=== PATIENT | female | born 1950 | race Caucasian/White ===

== ENCOUNTER → 2020-09-15 | Outpatient (CLI) | payer OTHER ==
[2020-09-15 07:53] LABS: Basophils # (auto) 0.1 10 ^3/uL (0-0.2); Basophils % (auto) 0.7 % (0.0-2.0); Eosinophils # (auto) 0.3 10 ^3/uL (0-0.8); Eosinophils % (auto) 3.9 % (0.0-7.0); Hematocrit 37.9 % (36.0-46.0); Lymphocytes # (auto) 1.7 10 ^3/uL (0.4-5.4); Lymphocytes % (auto) 22.6 % (10.0-50.0); Mean Corpuscular Hemoglobin 29.5 pg (28.0-32.0); Mean Corpuscular Hgb Conc. 34.3 g/dL (32.0-36.0); Mean Corpuscular Volume 85.9 fL (80.0-100.0); Monocytes # (auto) 0.5 10 ^3/uL (0-1.3); Monocytes % (auto) 6.6 % (0.0-12.0); Neutrophils % (auto) 66.2 % (37.0-80.0); Nucleated Red Blood Cells % 0.1 %; Platelet Count (auto) 279 10^3/uL (140-450); Red Blood Cells 4.41 10^6/uL (4.0-5.20); Red Cell Distribution Width 13.8 % (11.8-14.3); Urine Bacteria NONE SEEN /hpf (None Seen); Urine Blood Negative /uL (Negative); Urine Specific Gravity 1.015 (1.001-1.035); Urine WBC <1 /hpf (0 - 5); White Blood Cell 7.6 10^3/uL (4.4-10.8)
[2020-09-15 08:25] LABS: Potassium 3.6 mmol/L (3.5-5.1)
[2020-09-15 08:36] LABS: Albumin 3.8 g/dL (3.4-5.0); BUN/Creatinine Ratio 24.4; Bilirubin, Total 0.3 mg/dL (0.2-1.0); Total Protein 7.4 g/dL (6.4-8.2)
== END | disposition home or self-care (01) ==
LOC: LAB 07:12
PROVIDERS: ATTEND Student in an Organized Health Care Education/Training Program
DX: E11.319 Type 2 diabetes mellitus with unspecified diabetic retinopathy without macular edema (principal); I10 Essential (primary) hypertension
CPT/HCPCS: 36415; 80053; 80061; 81001; 82043; 83036; 84443; 85025

== ENCOUNTER → 2020-11-30 | Outpatient (CLI) | payer OTHER ==
[2020-11-30 12:23] LABS: Basophils # (auto) 0.1 10 ^3/uL (0-0.2); Basophils % (auto) 0.7 % (0.0-2.0); Eosinophils # (auto) 0.3 10 ^3/uL (0-0.8); Eosinophils % (auto) 3.8 % (0.0-7.0); Hematocrit 35.7 % (36.0-46.0); Lymphocytes # (auto) 2.1 10 ^3/uL (0.4-5.4); Lymphocytes % (auto) 26.4 % (10.0-50.0); Mean Corpuscular Hgb Conc. 33.5 g/dL (32.0-36.0); Mean Corpuscular Volume 86.5 fL (80.0-100.0); Monocytes # (auto) 0.5 10 ^3/uL (0-1.3); Monocytes % (auto) 6.1 % (0.0-12.0); Platelet Count (auto) 299 10^3/uL (140-450); Red Blood Cells 4.13 10^6/uL (4.0-5.20)
[2020-11-30 12:42] LABS: Potassium 4.3 mmol/L (3.5-5.1)
[2020-11-30 12:44] LABS: BUN/Creatinine Ratio 21.3
== END | disposition home or self-care (01) ==
LOC: LAB 10:56
PROVIDERS: ATTEND Student in an Organized Health Care Education/Training Program
DX: E11.9 Type 2 diabetes mellitus without complications (principal); D50.9 Iron deficiency anemia, unspecified; M25.50 Pain in unspecified joint
CPT/HCPCS: 36415; 80048; 83036; 85025; 86225; 86235

== ENCOUNTER → 2020-12-12 | Outpatient (CLI) | payer OTHER ==
[2020-12-12 11:51] LABS: Basophils # (auto) 0.1 10 ^3/uL (0-0.2); Basophils % (auto) 0.6 % (0.0-2.0); Eosinophils # (auto) 0.3 10 ^3/uL (0-0.8); Eosinophils % (auto) 3.5 % (0.0-7.0); Hematocrit 40.1 % (36.0-46.0); Hemoglobin 13.6 g/dL (12.2-16.2); Lymphocytes # (auto) 2.2 10 ^3/uL (0.4-5.4); Lymphocytes % (auto) 24.6 % (10.0-50.0); Mean Corpuscular Hemoglobin 29.6 pg (28.0-32.0); Mean Corpuscular Hgb Conc. 33.9 g/dL (32.0-36.0); Mean Corpuscular Volume 87.3 fL (80.0-100.0); Monocytes # (auto) 0.5 10 ^3/uL (0-1.3); Monocytes % (auto) 6.1 % (0.0-12.0); Neutrophils # (auto) 5.8 10 ^3/uL (1.6-8.6); Neutrophils % (auto) 65.2 % (37.0-80.0); Nucleated Red Blood Cells % 0.2 %; Platelet Count (auto) 357 10^3/uL (140-450); Red Blood Cells 4.59 10^6/uL (4.0-5.20); Red Cell Distribution Width 14.3 % (11.8-14.3); White Blood Cell 8.9 10^3/uL (4.4-10.8)
[2020-12-12 11:57] LABS: Urine Blood Negative /uL (Negative); Urine Specific Gravity 1.029 (1.001-1.035)
[2020-12-12 12:03] LABS: Potassium 3.9 mmol/L (3.5-5.1)
[2020-12-12 12:13] LABS: Free T4 (Free Thyroxine) 1.31 ng/dL (0.89-1.76)
[2020-12-12 12:16] LABS: Albumin 4.1 g/dL (3.4-5.0); BUN/Creatinine Ratio 23.8; Bilirubin, Total 0.4 mg/dL (0.2-1.0); Calcium 9.5 mg/dL (8.5-10.1); Total Protein 8.1 g/dL (6.4-8.2)
== END | disposition home or self-care (01) ==
LOC: LAB 08:05
PROVIDERS: ATTEND Internal Medicine
DX: D51.3 Other dietary vitamin B12 deficiency anemia (principal); D64.9 Anemia, unspecified; E11.9 Type 2 diabetes mellitus without complications; E55.9 Vitamin D deficiency, unspecified; I10 Essential (primary) hypertension; R00.2 Palpitations; R53.1 Weakness; R30.0 Dysuria
CPT/HCPCS: 36415; 80053; 80061; 81003; 82306; 82607; 83036; 84439; 84443; 85025; 87086

== ENCOUNTER → 2020-12-16 | Outpatient (CLI) | payer OTHER | END | disposition home or self-care (01) | LOC: Rad HDHVI 08:05 | PROVIDERS: ATTEND Internal Medicine | DX: I08.3 Combined rheumatic disorders of mitral, aortic and tricuspid valves (principal); I10 Essential (primary) hypertension; R07.9 Chest pain, unspecified | CPT/HCPCS: 93306 ==

== ENCOUNTER → 2020-12-27 | Outpatient (CLI) | payer OTHER ==
[~2020-12-27] VITALS: Ht 160 cm; Wt 78.0 kg
[~2020-12-27] MED LIST: ADENOSINE 66 MG in GIVE UN-DILUTED 0 ML IV ONE; ADENOSINE 90 MG/30 ML INJ IV ONE
== END | disposition home or self-care (01) ==
LOC: Rad HDHVI 13:31
PROVIDERS: ATTEND Internal Medicine
DX: I10 Essential (primary) hypertension (principal); E11.9 Type 2 diabetes mellitus without complications; E78.5 Hyperlipidemia, unspecified; R07.89 Other chest pain; Z82.49 Family history of ischemic heart disease and other diseases of the circulatory system
CPT/HCPCS: 78452; 93005; 96374; 96375; A9500; J0153

== ENCOUNTER → 2021-01-17 | Outpatient (CLI) | payer OTHER | END | disposition home or self-care (01) | LOC: Rad HDHVI 13:39 | PROVIDERS: ATTEND Internal Medicine | DX: I07.1 Rheumatic tricuspid insufficiency (principal); I11.9 Hypertensive heart disease without heart failure; R07.9 Chest pain, unspecified | CPT/HCPCS: 93306 ==

== ENCOUNTER → 2021-05-15 | Outpatient (CLI) | payer OTHER ==
[2021-05-15 09:56] LABS: Basophils # (auto) 0 10 ^3/uL (0-0.2); Basophils % (auto) 0.5 % (0.0-2.0); Eosinophils # (auto) 0.4 10 ^3/uL (0-0.8); Eosinophils % (auto) 6.4 % (0.0-7.0); Hematocrit 41.7 % (36.0-46.0); Hemoglobin 13.9 g/dL (12.2-16.2); Lymphocytes % (auto) 29.7 % (10.0-50.0); Mean Corpuscular Hemoglobin 29.5 pg (28.0-32.0); Mean Corpuscular Hgb Conc. 33.3 g/dL (32.0-36.0); Mean Corpuscular Volume 88.5 fL (80.0-100.0); Monocytes # (auto) 0.4 10 ^3/uL (0-1.3); Monocytes % (auto) 6.3 % (0.0-12.0); Neutrophils # (auto) 3.9 10 ^3/uL (1.6-8.6); Neutrophils % (auto) 57.1 % (37.0-80.0); White Blood Cell 6.9 10^3/uL (4.4-10.8)
[2021-05-15 10:14] LABS: Potassium 3.8 mmol/L (3.5-5.1)
[2021-05-15 10:34] LABS: BUN/Creatinine Ratio 27.1; Calcium 9.5 mg/dL (8.5-10.1)
== END | disposition home or self-care (01) ==
LOC: LAB 09:31
PROVIDERS: ATTEND Student in an Organized Health Care Education/Training Program
DX: E11.9 Type 2 diabetes mellitus without complications (principal); I10 Essential (primary) hypertension
CPT/HCPCS: 36415; 80048; 83036; 85025

== ENCOUNTER → 2021-09-14 | Outpatient (CLI) | payer OTHER ==
[2021-09-14 08:28] LABS: Urine Bacteria NONE SEEN /hpf (None Seen); Urine Blood Negative /uL (Negative); Urine Specific Gravity 1.025 (1.001-1.035); Urine WBC 1 /hpf (0 - 5)
[2021-09-14 11:58] LABS: Basophils # (auto) 0 10 ^3/uL (0-0.2); Basophils % (auto) 0.6 % (0.0-2.0); Eosinophils # (auto) 0.2 10 ^3/uL (0-0.8); Eosinophils % (auto) 2.8 % (0.0-7.0); Hematocrit 38.7 % (36.0-46.0); Hemoglobin 13.3 g/dL (12.2-16.2); Lymphocytes # (auto) 1.9 10 ^3/uL (0.4-5.4); Lymphocytes % (auto) 27.5 % (10.0-50.0); Mean Corpuscular Hgb Conc. 34.3 g/dL (32.0-36.0); Mean Corpuscular Volume 87.3 fL (80.0-100.0); Monocytes # (auto) 0.5 10 ^3/uL (0-1.3); Monocytes % (auto) 7.1 % (0.0-12.0); Neutrophils # (auto) 4.3 10 ^3/uL (1.6-8.6); Nucleated Red Blood Cells % 0.1 %; Red Blood Cells 4.43 10^6/uL (4.0-5.20); White Blood Cell 6.9 10^3/uL (4.4-10.8)
[2021-09-14 12:04] LABS: Albumin 3.9 g/dL (3.4-5.0); Potassium 3.8 mmol/L (3.5-5.1)
[2021-09-14 12:18] LABS: BUN/Creatinine Ratio 25.6; Bilirubin, Total 0.4 mg/dL (0.2-1.0); Calcium 9.4 mg/dL (8.5-10.1)
== END | disposition home or self-care (01) ==
LOC: LAB 07:51
PROVIDERS: ATTEND Student in an Organized Health Care Education/Training Program
DX: E11.9 Type 2 diabetes mellitus without complications (principal); I10 Essential (primary) hypertension
CPT/HCPCS: 36415; 80053; 80061; 81001; 82043; 83036; 85025

== ENCOUNTER → 2022-01-09 | Outpatient (CLI) | payer OTHER | END | disposition home or self-care (01) | LOC: Rad HDHVI 10:05 | PROVIDERS: ATTEND Internal Medicine | DX: I08.1 Rheumatic disorders of both mitral and tricuspid valves (principal); I50.9 Heart failure, unspecified; I42.9 Cardiomyopathy, unspecified | CPT/HCPCS: 93306 ==

== ENCOUNTER → 2022-03-15 | Outpatient (CLI) | payer OTHER ==
[2022-03-15 09:55] LABS: Urine Bacteria NONE SEEN /hpf (None Seen); Urine Blood Negative /uL (Negative); Urine WBC 1 /hpf (0 - 5)
[2022-03-15 09:59] LABS: Basophils # (auto) 0 10 ^3/uL (0-0.2); Basophils % (auto) 0.4 % (0.0-2.0); Eosinophils # (auto) 0.2 10 ^3/uL (0-0.8); Eosinophils % (auto) 2.5 % (0.0-7.0); Hematocrit 41.9 % (36.0-46.0); Hemoglobin 13.9 g/dL (12.2-16.2); Lymphocytes # (auto) 1.9 10 ^3/uL (0.4-5.4); Lymphocytes % (auto) 23.8 % (10.0-50.0); Mean Corpuscular Hemoglobin 28.4 pg (28.0-32.0); Mean Corpuscular Hgb Conc. 33.3 g/dL (32.0-36.0); Mean Corpuscular Volume 85.4 fL (80.0-100.0); Monocytes # (auto) 0.6 10 ^3/uL (0-1.3); Monocytes % (auto) 7.2 % (0.0-12.0); Neutrophils # (auto) 5.2 10 ^3/uL (1.6-8.6); Neutrophils % (auto) 66.1 % (37.0-80.0); Nucleated Red Blood Cells % 0.1 %; Red Cell Distribution Width 14.6 % (11.8-14.3); White Blood Cell 7.9 10^3/uL (4.4-10.8)
[2022-03-15 10:06] LABS: Potassium 3.6 mmol/L (3.5-5.1)
[2022-03-15 10:17] LABS: BUN/Creatinine Ratio 21.3; Calcium 8.9 mg/dL (8.5-10.1)
== END | disposition home or self-care (01) ==
LOC: LAB 09:10
PROVIDERS: ATTEND Student in an Organized Health Care Education/Training Program
DX: E11.9 Type 2 diabetes mellitus without complications (principal); I10 Essential (primary) hypertension
CPT/HCPCS: 36415; 80048; 81001; 83036; 84443; 85025

== ENCOUNTER → 2022-05-30 | Outpatient (CLI) | payer OTHER | END | disposition home or self-care (01) | LOC: Rad HDHVI 10:01 | PROVIDERS: ATTEND Internal Medicine | DX: I08.3 Combined rheumatic disorders of mitral, aortic and tricuspid valves (principal); I11.9 Hypertensive heart disease without heart failure; E78.5 Hyperlipidemia, unspecified | CPT/HCPCS: 93306 ==

== ENCOUNTER → 2023-06-19 | Outpatient (CLI) | payer OTHER ==
[2023-06-19 10:26] LABS: Basophils # (auto) 0 10 ^3/uL (0-0.2); Basophils % (auto) 0.5 % (0.0-2.0); Eosinophils # (auto) 0.2 10 ^3/uL (0-0.8); Eosinophils % (auto) 2.5 % (0.0-7.0); Hematocrit 42.9 % (36.0-46.0); Hemoglobin 14.2 g/dL (12.2-16.2); Lymphocytes # (auto) 1.6 10 ^3/uL (0.4-5.4); Lymphocytes % (auto) 19.3 % (10.0-50.0); Mean Corpuscular Hemoglobin 29.3 pg (28.0-32.0); Mean Corpuscular Volume 88.9 fL (80.0-100.0); Monocytes # (auto) 0.5 10 ^3/uL (0-1.3); Monocytes % (auto) 6.2 % (0.0-12.0); Neutrophils # (auto) 6.1 10 ^3/uL (1.6-8.6); Neutrophils % (auto) 71.5 % (37.0-80.0); Nucleated Red Blood Cells % 0.1 %; Red Blood Cells 4.83 10^6/uL (4.0-5.20); Red Cell Distribution Width 14.8 % (11.8-14.3); White Blood Cell 8.6 10^3/uL (4.4-10.8)
[2023-06-19 10:32] LABS: Urine Bacteria NONE SEEN /hpf (None Seen); Urine Blood TRACE /uL (Negative); Urine Clarity Clear (Clear); Urine Protein, UAD Negative (Negative); Urine Specific Gravity 1.025 (1.001-1.035); Urine WBC 5 /hpf (0 - 5); Urine pH 5.5 (5.0-8.0)
[2023-06-19 10:33] LABS: Urine Color Straw (Yellow)
[2023-06-19 11:18] LABS: Creatinine, Urine 42.58 mg/dL (30.0-125.0)
[2023-06-19 11:21] LABS: Alanine Aminotransferase 24 U/L (7-40); Albumin 4.6 g/dL (3.2-4.8); Alkaline Phosphatase 104 U/L (46-116); Anion Gap 8 (5-15); Aspartate Aminotransferase 19 U/L (13-40); Blood Urea Nitrogen 15 mg/dL (9-23); Calcium 9.6 mg/dL (8.7-10.4); Carbon Dioxide 27 mmol/L (20-30); Chloride 103 mmol/L (98-107); Glucose 169 mg/dL (74-106); Micro Albumin < 3.0 mg/L (<30.0); Potassium 3.7 mmol/L (3.5-5.1); Sodium 138 mmol/L (136-145)
[2023-06-19 11:22] LABS: Bilirubin, Total 0.8 mg/dL (0.2-1.0); Total Protein 7.4 g/dL (5.7-8.2)
== END | disposition home or self-care (01) ==
LOC: LAB 09:54
PROVIDERS: ATTEND Student in an Organized Health Care Education/Training Program
DX: E11.9 Type 2 diabetes mellitus without complications (principal); I10 Essential (primary) hypertension; E55.9 Vitamin D deficiency, unspecified
CPT/HCPCS: 36415; 80053; 81001; 82043; 82306; 82570; 83036; 84439; 84443; 85025

== ENCOUNTER → 2023-12-18 | Outpatient (CLI) | payer OTHER ==
[2023-12-18 10:38] LABS: Urine Bacteria None Seen /hpf (None Seen)
[2023-12-18 10:50] LABS: Basophils # (auto) 0 10 ^3/uL (0-0.2); Basophils % (auto) 0.5 % (0.0-2.0); Eosinophils # (auto) 0.3 10 ^3/uL (0-0.8); Hematocrit 41.9 % (36.0-46.0); Lymphocytes # (auto) 1.5 10 ^3/uL (0.4-5.4); Lymphocytes % (auto) 17.8 % (10.0-50.0); Mean Corpuscular Hemoglobin 29.2 pg (28.0-32.0); Mean Corpuscular Hgb Conc. 33.4 g/dL (32.0-36.0); Mean Corpuscular Volume 87.6 fL (80.0-100.0); Monocytes # (auto) 0.5 10 ^3/uL (0-1.3); Monocytes % (auto) 5.7 % (0.0-12.0); Neutrophils # (auto) 6.1 10 ^3/uL (1.6-8.6); Nucleated Red Blood Cells % 0.1 %; Red Blood Cells 4.78 10^6/uL (4.0-5.20); Red Cell Distribution Width 14.8 % (11.8-14.3); White Blood Cell 8.4 10^3/uL (4.4-10.8)
[2023-12-18 11:10] LABS: Urine Blood 1+ /uL (Negative); Urine Clarity Clear (Clear); Urine Color Light-Yellow (Yellow); Urine Protein, UAD Negative (Negative); Urine Specific Gravity 1.025 (1.001-1.035); Urine Urobilinogen Normal (Negative); Urine WBC 10 /hpf (0 - 5)
[2023-12-18 11:46] LABS: Creatinine, Urine 84.49 mg/dL (30.0-125.0)
[2023-12-18 11:53] LABS: Alanine Aminotransferase 27 U/L (7-40); Albumin 4.4 g/dL (3.2-4.8); Alkaline Phosphatase 99 U/L (46-116); Anion Gap 6 (5-15); Aspartate Aminotransferase 23 U/L (13-40); BUN/Creatinine Ratio 15.2 (10.0-20.0); Bilirubin, Total 0.5 mg/dL (0.2-1.0); Blood Urea Nitrogen 15 mg/dL (9-23); Calcium 9.9 mg/dL (8.5-10.1); Carbon Dioxide 29 mmol/L (20-30); Chloride 105 mmol/L (98-107); Cholesterol 124 mg/dL (< 200); Glucose 100 mg/dL (74-106); HDL Cholesterol 55 mg/dL (40-59); LDL Cholesterol 48 mg/dL (< 100); Potassium 4.1 mmol/L (3.5-5.1); Sodium 140 mmol/L (136-145); Total Protein 7.1 g/dL (5.7-8.2); Triglycerides 110 mg/dL (< 150)
== END | disposition home or self-care (01) ==
LOC: LAB 10:23
PROVIDERS: ATTEND Student in an Organized Health Care Education/Training Program
DX: E11.9 Type 2 diabetes mellitus without complications (principal); I10 Essential (primary) hypertension; E78.5 Hyperlipidemia, unspecified; E03.8 Other specified hypothyroidism
CPT/HCPCS: 36415; 80053; 80061; 81001; 82043; 82570; 83036; 84439; 84443; 85025

== ENCOUNTER → 2024-06-18 | Outpatient (CLI) | payer OTHER ==
[2024-06-18 13:47] LABS: Basophils # (auto) 0.1 10 ^3/uL (0-0.2); Basophils % (auto) 0.8 % (0.0-2.0); Eosinophils # (auto) 0.2 10 ^3/uL (0-0.8); Eosinophils % (auto) 2.1 % (0.0-7.0); Hematocrit 44.1 % (36.0-46.0); Hemoglobin 14.7 g/dL (12.2-16.2); Lymphocytes # (auto) 1.6 10 ^3/uL (0.4-5.4); Lymphocytes % (auto) 20.9 % (10.0-50.0); Mean Corpuscular Hemoglobin 29.6 pg (28.0-32.0); Mean Corpuscular Hgb Conc. 33.2 g/dL (32.0-36.0); Mean Corpuscular Volume 89.1 fL (80.0-100.0); Monocytes # (auto) 0.6 10 ^3/uL (0-1.3); Monocytes % (auto) 7.6 % (0.0-12.0); Neutrophils # (auto) 5.3 10 ^3/uL (1.6-8.6); Neutrophils % (auto) 68.6 % (37.0-80.0); Platelet Count (auto) 252 10^3/uL (140-450); Red Blood Cells 4.95 10^6/uL (4.0-5.20); White Blood Cell 7.7 10^3/uL (4.4-10.8)
[2024-06-18 14:02] LABS: Urine Bacteria FEW /hpf (None Seen); Urine Blood Negative /uL (Negative); Urine Clarity Clear (Clear); Urine Color Light-Yellow (Yellow); Urine Protein, UAD Negative (Negative); Urine Specific Gravity 1.032 (1.001-1.035); Urine Urobilinogen Normal (Negative); Urine WBC 2 /hpf (0 - 5)
[2024-06-18 14:39] LABS: Alanine Aminotransferase 21 U/L (7-40); Albumin 4.6 g/dL (3.2-4.8); Alkaline Phosphatase 119 U/L (46-116); Anion Gap 10 (5-15); Aspartate Aminotransferase 16 U/L (13-40); BUN/Creatinine Ratio 17.3 (10.0-20.0); Bilirubin, Total 0.7 mg/dL (0.2-1.0); Blood Urea Nitrogen 19 mg/dL (9-23); Calcium 10.3 mg/dL (8.7-10.4); Carbon Dioxide 26 mmol/L (20-31); Chloride 105 mmol/L (98-107); Glucose 205 mg/dL (74-106); Sodium 141 mmol/L (136-145); Total Protein 7.4 g/dL (5.7-8.2)
== END | disposition home or self-care (01) ==
LOC: LAB 13:31
PROVIDERS: ATTEND Student in an Organized Health Care Education/Training Program
DX: I10 Essential (primary) hypertension (principal); E03.9 Hypothyroidism, unspecified; E11.9 Type 2 diabetes mellitus without complications
CPT/HCPCS: 36415; 80053; 81001; 83036; 84439; 84443; 85025

== ENCOUNTER → 2024-07-09 | Outpatient (CLI) | payer OTHER | END | disposition home or self-care (01) | LOC: Rad HDHVI 13:59 | PROVIDERS: ATTEND Internal Medicine Cardiovascular Disease | DX: I25.2 Old myocardial infarction (principal) | CPT/HCPCS: 93306 ==

== ENCOUNTER → 2024-07-13 | Outpatient (CLI) | payer OTHER | END | disposition home or self-care (01) | LOC: Rad HDHVI 10:47 | PROVIDERS: ATTEND Internal Medicine Cardiovascular Disease | DX: I25.2 Old myocardial infarction (principal) | CPT/HCPCS: 93880 ==

== ENCOUNTER → 2024-07-15 | Outpatient (CLI) | payer OTHER ==
[~2024-07-15] VITALS: Ht 160 cm; Wt 79.4 kg
[~2024-07-15] MED LIST changes: -ADENOSINE 66 MG in GIVE UN-DILUTED 0 ML IV ONE; +ADENOSINE 67 MG in GIVE UN-DILUTED 0 ML IV ONE
== END | disposition home or self-care (01) ==
LOC: Rad HDHVI 13:26
PROVIDERS: ATTEND Internal Medicine Cardiovascular Disease
DX: I13.0 Hypertensive heart and chronic kidney disease with heart failure and stage 1 through stage 4 chronic kidney disease, or unspecified chronic kidney disease (principal); E11.22 Type 2 diabetes mellitus with diabetic chronic kidney disease; N18.2 Chronic kidney disease, stage 2 (mild); I50.22 Chronic systolic (congestive) heart failure; I25.118 Atherosclerotic heart disease of native coronary artery with other forms of angina pectoris; E11.42 Type 2 diabetes mellitus with diabetic polyneuropathy; E78.5 Hyperlipidemia, unspecified; I25.2 Old myocardial infarction; Z79.4 Long term (current) use of insulin; Z95.811 Presence of heart assist device
CPT/HCPCS: 78452; 93005; 96374; 96375; A9500; J0153

== ENCOUNTER → 2024-08-19 | Outpatient (CLI) | payer MEDICARE ==
[~2024-08-19] MED LIST changes: -ADENOSINE 67 MG in GIVE UN-DILUTED 0 ML IV ONE; -ADENOSINE 90 MG/30 ML INJ IV ONE; +ASPI325T6 PO; +ATOR-507 PO; +CALC-315 OR; +CYAN1TAB11 PO; +DAPA1TAB4 PO; +GABA250S7 PO; +HYDR25TA5 PO; +INSLANTI SC; +LATA0.0020 OP; +METF-371 PO; +NITR0.4S29 SL; +POM PO; +SACU1TAB7 PO; +TICA90TA PO; +ZOLP10TA PO
[2024-08-19 09:15] VITALS: BP 139/65; PULSE 57; RESP 16; O2SAT 99
[2024-08-19 09:30] VITALS: BP 129/71; PULSE 60; RESP 16; O2SAT 99
--- NOTE | 2024-08-19 11:27 | DVH ---
XY CHEST TWO VIEWS ROUTINE CLINICAL HISTORY: PRE OP/pain COMPARISON: None TECHNIQUE: Frontal and lateral view of the chest was obtained FINDINGS: Lines and Tubes: None Lungs: No focal consolidation. Pleura: No effusion. No pneumothorax. Cardiomediastinal contours: Unremarkable Bones: No acute osseous abnormality. IMPRESSION: No acute cardiopulmonary disease.
--- NOTE | 2024-08-20 12:43 | DVHHP ---
ADMIT DATE: 08/19/2024 HISTORY OF PRESENT ILLNESS: The patient is 74 years old with history of ischemic cardiomyopathy, depressed left ventricular ejection fraction. The patient now with ongoing chest pain. The patient is already on dual antiplatelet therapy because of the small and diffuse disease that the patient has. The patient now to undergo a coronary angiography as well as carotid angiography because the patient appears to have a high-grade narrowing of the left internal carotid artery. Risks and benefits were explained to the patient. The patient understands and agrees. REVIEW OF SYSTEM: Significant for: * The patient with history of diabetes. * History of ischemic cardiomyopathy, congestive heart failure. * History of peripheral vascular disease with claudication symptoms as well. The patient's overall prognosis is poor and now, the patient is to undergo coronary angiography with possibility of revascularization. He was successfully revascularizing with . The patient will require angioplasty. If the patient is angioplastied, then we will reassess the patient's LV function before committing the patient to AICD. In the meantime, risks and benefits were explained to the patient. The patient denies any melena, hematochezia, hematemesis or hemoptysis. Denies any syncopal episode at this time. Denies any cardiac arrest. FAMILY HISTORY: Significant for coronary artery disease. PHYSICAL EXAMINATION: VITAL SIGNS: Blood pressure is 120/60, pulse of 71, O2 saturation 98% on room air. HEENT: Pupils are reactive. Funduscopic exam shows some AV nicking and some exudates. No papilledema, however. Sclerae are anicteric. Extraocular muscles are intact. No JVD appreciated at this time. However, the patient does have some shotty adenopathy. Cervical adenopathy. Thyroid is within normal. NECK: No nuchal rigidity. Carotid pulses are 2+ symmetrical, normal upstroke and contour. There is a soft left carotid bruit. PULMONARY: Scattered rhonchi. CARDIOVASCULAR: Regular rate. PMI is diffuse, laterally displaced. ABDOMEN: Soft, nontender, obese. Stool guaiac is negative. Liver approximately is 5 cm. EXTREMITIES: Distal pulses are Doppler only. ASSESSMENT AND PLAN: * Thus, the patient with ischemic cardiomyopathy. * Now with TIA like symptoms with high-grade narrowing of the left internal carotid artery ischemic cardiomyopathy, depressed left ventricular ejection fraction. The patient is now to undergo coronary angiography as well as carotid angiography. We will make further recommendations after the above procedures are done. Jaime Rivera MD SA/MELVINA/SAPPHIRE TID: [id number] RECEIPT: [id number]
== END | disposition home or self-care (01) ==
LOC: Rad HDHVI 09:05
PROVIDERS: ATTEND Internal Medicine Cardiovascular Disease
DX: Z01.810 Encounter for preprocedural cardiovascular examination (principal)
CPT/HCPCS: 71046; 93005; G0463

== ENCOUNTER 2024-08-20 07:53 | Inpatient (IN) | payer BC, MEDICARE ==
[2024-08-19 12:04] LABS: Chloride 105 mmol/L (98-107); Potassium 4.2 mmol/L (3.5-5.1); Sodium 141 mmol/L (136-145)
[2024-08-19 12:05] LABS: Anion Gap 8 (5-15); Carbon Dioxide 28 mmol/L (20-31)
[2024-08-19 12:06] LABS: Basophils # (auto) 0 10 ^3/uL (0-0.2); Basophils % (auto) 0.4 % (0.0-2.0); Eosinophils # (auto) 0.2 10 ^3/uL (0-0.8); Eosinophils % (auto) 2.3 % (0.0-7.0); Hematocrit 43.6 % (36.0-46.0); Hemoglobin 14.7 g/dL (12.2-16.2); Lymphocytes # (auto) 1.8 10 ^3/uL (0.4-5.4); Lymphocytes % (auto) 22.3 % (10.0-50.0); Mean Corpuscular Hemoglobin 29.6 pg (28.0-32.0); Mean Corpuscular Hgb Conc. 33.7 g/dL (32.0-36.0); Mean Corpuscular Volume 87.6 fL (80.0-100.0); Monocytes # (auto) 0.4 10 ^3/uL (0-1.3); Monocytes % (auto) 5.7 % (0.0-12.0); Neutrophils # (auto) 5.5 10 ^3/uL (1.6-8.6); Neutrophils % (auto) 69.3 % (37.0-80.0); Nucleated Red Blood Cells % 0.2 %; Platelet Count (auto) 281 10^3/uL (140-450); Red Blood Cells 4.97 10^6/uL (4.0-5.20); Red Cell Distribution Width 14.5 % (11.8-14.3); White Blood Cell 7.9 10^3/uL (4.4-10.8)
[2024-08-19 12:09] LABS: Partial Thromboplastin Time 26.3 SEC (24.5-34.5); Prothrombin Time 10.6 sec (9.3-11.8)
[2024-08-19 12:11] LABS: BUN/Creatinine Ratio 15.4 (10.0-20.0); Blood Urea Nitrogen 16 mg/dL (9-23); Calcium 10.7 mg/dL (8.7-10.4); Glucose 133 mg/dL (74-106)
[2024-08-20] VITALS (14 sets, daily range): BP systolic 91–119; BP diastolic 45–65; PULSE 65–72; RESP 12–20; TEMP 97.8–98.6; O2SAT 94–99
[~2024-08-20] VITALS: Ht 160 cm; Wt 79.0 kg
[~2024-08-20 07:53] MED LIST changes: -CALC-315 OR; -GABA250S7 PO; -LATA0.0020 OP
[2024-08-20] MEDS: IOHEXOL 350 MG/ML 100ML IJ ONE ×4 (08:53→10:28)
[2024-08-20] MEDS: fentaNYL CITRATE 100 MCG/2 ML VL ONE (09:06)
[2024-08-20] MEDS: GLYCOPYRROLATE 0.2 MG/ML 1ML VIAL ONE (09:06)
[2024-08-20] MEDS: ATROPINE SULF 1 MG/10ml SYR ONE (09:06)
[2024-08-20] MEDS: MIDAZOLAM HCL 2MG/2ML 2ml VIAL (1mg/ml) ONE (09:06)
[2024-08-20] MEDS: SODIUM CHL 0.9% 50 ML ONE ×2 (09:07→10:20)
[2024-08-20] MEDS: LIDOCAINE 2%HCL (LOCAL ANESTH.) INJ 20ML MDV ONE (09:07)
[2024-08-20] MEDS: EPINEPHrine HCL 1 MG/10 ML SYRG ONE (09:07)
[2024-08-20] MEDS: ANGIOMAX 250 MG VIAL IV ONE ×2 (09:07→10:20)
[2024-08-20] MEDS: HYDROmorphone HCL 2 MG/ML VL/or syr ONE (09:32)
[2024-08-20] MEDS: VERAPAMIL 2.5MG/ML INJ 2ML VIAL IV ONE (10:26)
[2024-08-20] MEDS: ADENOSINE 6 MG/2 ML INJ IV ONE (10:31)
[2024-08-20] MEDS ORDERED: NITROGLYCERIN 0.4 MG SL TAB SL PRN (11:15)
[2024-08-20] MEDS ORDERED: MORPHINE SULFATE INJ 2 MG/ml SYRG IV PRN (11:15)
[2024-08-20] MEDS: ASPirin 325 MG TAB ONE (11:16)
[2024-08-20] MEDS ORDERED: DEXTROSE (50%) 50ML SYRG IV PRN (12:15)
--- NOTE | 2024-08-20 12:18 | DVHOP ---
DATE OF SURGERY: 08/20/2024 PROCEDURES PERFORMED: 1. Selective left and right carotid angiography. 2. Left and right cerebral angiography. 3. Conscious sedation. DESCRIPTION OF PROCEDURE: The patient was prepped and draped in a sterile condition. A 1% Xylocaine used to anesthetize the right groin. Using a Cook needle, right femoral artery was engaged with Seldinger technique, a 6-Wel[place] sheath into the right femoral artery. Using 6-Welsh JR4 diagnostic catheter, selective left and right internal, external and common carotid artery angiography was performed. Then, the patient also had angiography of the cerebral arteries. There were no complications. The patient tolerated the procedure well. RESULTS: * Left and right common carotid artery without any flow restrictive lesion. * Left and right external carotid artery without any flow restrictive lesion. * Right internal carotid artery, mild intimal irregularity without any flow restrictive lesion. Left internal carotid artery, however, has a 90% heavily calcified narrowing that will require angioplasty at a later time since the patient is symptomatic. At this time, the patient will be put on dual antiplatelet therapy and we will schedule the patient for carotid angioplasty at a later date. She is not a candidate for carotid endarterectomy because of ischemic cardiomyopathy, low ejection fraction, high risk for any kind of surgical intervention. Jaime Rivera MD SA/JERICHO/JESSICA TID: [id number] RECEIPT: [id number]
--- NOTE | 2024-08-20 12:22 | DVHOP ---
DATE OF SURGERY: 08/20/2024 PROCEDURES PERFORMED: * Selective left and right coronary angiography. * Right iliac angiography. * Ventriculogram. * Thrombectomy of the left anterior descending artery. Rotational atherectomy of the left anterior descending artery with CSI rotational atherectomy device. Shockwave treatment of the left anterior descending artery. * Stent placement with a 2.5 x 30 mm [place] stent in the mid to proximal portion of the left anterior descending artery and 3.0 x 15 mm stent in the proximal left anterior descending artery. * Intra-arterial injection of adenosine and verapamil into the left anterior descending artery. RESULTS: * Selective left and right coronary angiography revealed left main calcified. No flow restrictive lesion. * Left anterior descending artery has severe diffuse disease throughout the length with rapid tapering. However, in the mid portion of the LAD to the proximal portion of the LAD there is highly calcified 90% stenosis. The patient underwent successful rotational atherectomy with thrombectomy with Shockwave device and stent placement with two sequential stents placement a 2.5 x 30 and a 3.0 x 15 mm stent from the mid LAD to the proximal LAD. 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 * Right coronary artery has a mid 90% narrowing that requires further intervention at a later date. * Left ventricular function was diminished with an estimated EF around 35% with an LVEDP of 18 mmHg with no gradient across the aortic valve. Thus: * The patient underwent successful angioplasty with thrombectomy and atherectomy of the proximal to mid LAD with two sequential stent placements as described above. * The patient will require angioplasty with stent placement of the right coronary artery at a later date. * Circumflex artery and its territories are chronically occluded. * LVEDP elevated at 18 mmHg and EF is markedly diminished. * The patient will require possible AICD at a later date. * We will continue to follow the patient. Jaime Rivera MD SA/HERNANDEZ TID: [id number] RECEIPT: [id number]
[2024-08-20] MEDS: ACCU-CHEK COMFORT CURVE STRIP VI SCH (17:00)
[2024-08-20] MEDS: InsuLIN REG 1unit/0.01ml Soln (100units/ml) SC SCH (17:00)
[2024-08-20] MEDS ORDERED: LATA0.0020 OP (20:51)
[2024-08-20] MEDS ORDERED: GABA250S7 PO (20:51)
[2024-08-20] MEDS ORDERED: ZOLPIDEM TARTRATE 5 MG TAB PO PRN (21:00)
[2024-08-20] MEDS: TICAGRELOR 90 MG TAB PO SCH (21:48)
[2024-08-20] MEDS: ATORVASTATIN 20 MG TAB PO SCH (21:48)
[2024-08-20] MEDS: Sacubitril-Valsartan (Entresto 49-51 mg) TABLET PO SCH (21:49)
[2024-08-21 01:00] VITALS: BP 88/43; PULSE 70; RESP 17; TEMP 97.5; O2SAT 95
--- NOTE | 2024-08-21 04:58 | DVHDS ---
DATE OF DISCHARGE: 08/20/2024 DISCHARGE DIAGNOSES: Ischemic cardiomyopathy, status post revascularization of the [id number] left anterior descending artery; however, the patient with severe diffuse disease throughout the left anterior descending artery and there is a likelihood that the entire LAD may even occlude. 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 Furthermore, carotid angiography showed a 90% narrowing of the left internal carotid artery that will require intervention at a later date since the patient is not a surgical candidate, but she is symptomatic. DISCHARGE PLAN: Dual-antiplatelet therapy will be maintained and risk modification should be initiated. The patient throughout the time of the procedure was complaining of claudication symptoms, especially in the right lower extremity, therefore, she may require further intervention of the right lower extremity at a later date. Jaime Rivera MD SA/ZOHREH TID: [id number] RECEIPT: [id number]
[2024-08-21 05:00] VITALS: BP 110/57; PULSE 73; RESP 17; TEMP 97.8; O2SAT 98
[2024-08-21 08:00] VITALS: PULSE 70; RESP 18
[2024-08-21 09:00] VITALS: BP 111/56; PULSE 67; RESP 18; TEMP 97.6; O2SAT 99
[2024-08-21] MEDS: DAPAGLIFLOZIN 5 MG TAB PO SCH (09:39)
[2024-08-21] MEDS: hydroCHLOROthiazide 25 MG TAB PO SCH (09:45)
[2024-08-21] MEDS: ASPirin 325 MG TAB PO SCH (09:45)
[2024-08-21] MEDS: CYANOCOBALAMIN 500 MCG TAB PO SCH (09:46)
[2024-08-21] MEDS: METOPROLOL SUCCINATE XL 50 MG TAB PO SCH (09:46)
[2024-08-21] MEDS ORDERED: PATIENTS OWN MEDICATION PO SCH (10:00)
[2024-08-21 13:00] VITALS: BP 107/49; PULSE 64; RESP 18; TEMP 97.6; O2SAT 95
[2024-08-21 14:49] VITALS: BP 111/56; PULSE 67; TEMP 36.4
== END 2024-08-21 15:30 | disposition home or self-care (01) | DRG 324 ==
LOC: CATH 07:53 → TELE 11:06 → TELE-CENTR 14:50
PROVIDERS: ADMIT Internal Medicine Cardiovascular Disease; ATTEND Internal Medicine Cardiovascular Disease
PROC: 02C03ZZ Extirpation of Matter from Coronary Artery, One Artery, Percutaneous Approach (ICD-10-PCS; principal; 2024-08-20)
PROC: 027035Z Dilation of Coronary Artery, One Artery with Two Drug-eluting Intraluminal Devices, Percutaneous Approach (ICD-10-PCS; 2024-08-20)
PROC: 02F03ZZ Fragmentation in Coronary Artery, One Artery, Percutaneous Approach (ICD-10-PCS; 2024-08-20)
PROC: B2111ZZ Fluoroscopy of Multiple Coronary Arteries using Low Osmolar Contrast (ICD-10-PCS; 2024-08-20)
PROC: 02C03ZZ Extirpation of Matter from Coronary Artery, One Artery, Percutaneous Approach (ICD-10-PCS; 2024-08-20)
PROC: B3151ZZ Fluoroscopy of Bilateral Common Carotid Arteries using Low Osmolar Contrast (ICD-10-PCS; 2024-08-20)
PROC: B31R1ZZ Fluoroscopy of Intracranial Arteries using Low Osmolar Contrast (ICD-10-PCS; 2024-08-20)
PROC: B3181ZZ Fluoroscopy of Bilateral Internal Carotid Arteries using Low Osmolar Contrast (ICD-10-PCS; 2024-08-20)
PROC: B31C1ZZ Fluoroscopy of Bilateral External Carotid Arteries using Low Osmolar Contrast (ICD-10-PCS; 2024-08-20)
PROC: B41F1ZZ Fluoroscopy of Right Lower Extremity Arteries using Low Osmolar Contrast (ICD-10-PCS; 2024-08-20)
DX: I25.5 Ischemic cardiomyopathy (principal); I65.22 Occlusion and stenosis of left carotid artery
CPT/HCPCS: 36223; 36415; 75710; 80048; 82962; 85025; 85610; 85730; 92933; 92972; 92973; 99152; C1724; C1769; C1874; G0378; J0153; J1815; J2250

== ENCOUNTER → 2024-09-21 | Outpatient (CLI) | payer BC ==
[~2024-09-21] MED LIST changes: +GABA250S7 PO; +LATA0.0020 OP; +METO25TA5 PO; -NITR0.4S29 SL; -ZOLP10TA PO
[2024-09-21 10:15] VITALS: BP_SYST 122; BP_SYST 123; BP_DIAS 55; BP_DIAS 82; PULSE 61; PULSE 62; RESP 16; RESP 18; O2SAT 95; O2SAT 99
[2024-09-21 10:30] VITALS: BP_SYST 129; BP_SYST 134; BP_DIAS 57; BP_DIAS 85; PULSE 59; PULSE 90; RESP 16; RESP 18; O2SAT 99
--- NOTE | 2024-09-21 13:41 | DVH ---
XY CHEST TWO VIEWS ROUTINE CLINICAL HISTORY: PRE OP/pain COMPARISON: XY CHEST TWO VIEWS ROUTINE on DOS: 08/19/24 TECHNIQUE: Frontal and lateral view of the chest was obtained FINDINGS: Lines and Tubes: None Lungs: No focal consolidation. Pleura: No effusion. No pneumothorax. Cardiomediastinal contours: Unremarkable Bones: No acute osseous abnormality. IMPRESSION: No acute cardiopulmonary disease.
== END | disposition home or self-care (01) ==
LOC: Rad HDHVI 12:45
PROVIDERS: ATTEND Internal Medicine Cardiovascular Disease
DX: Z01.818 Encounter for other preprocedural examination (principal); I65.22 Occlusion and stenosis of left carotid artery; R94.31 Abnormal electrocardiogram [ECG] [EKG]
CPT/HCPCS: 71046; 93005; G0463

== ENCOUNTER 2024-09-24 07:28 | Inpatient (IN) | payer BC, OTHER ==
[2024-09-21 16:21] LABS: Basophils # (auto) 0 10 ^3/uL (0-0.2); Basophils % (auto) 0.4 % (0.0-2.0); Eosinophils # (auto) 0.3 10 ^3/uL (0-0.8); Eosinophils % (auto) 3.4 % (0.0-7.0); Hematocrit 44.9 % (36.0-46.0); Hemoglobin 14.7 g/dL (12.2-16.2); Lymphocytes % (auto) 26.5 % (10.0-50.0); Mean Corpuscular Hgb Conc. 32.7 g/dL (32.0-36.0); Mean Corpuscular Volume 88.8 fL (80.0-100.0); Monocytes # (auto) 0.6 10 ^3/uL (0-1.3); Monocytes % (auto) 7.4 % (0.0-12.0); Neutrophils # (auto) 4.7 10 ^3/uL (1.6-8.6); Neutrophils % (auto) 62.3 % (37.0-80.0); Nucleated Red Blood Cells % 0.1 %; Platelet Count (auto) 266 10^3/uL (140-450); Red Blood Cells 5.06 10^6/uL (4.0-5.20); Red Cell Distribution Width 14.7 % (11.8-14.3); White Blood Cell 7.5 10^3/uL (4.4-10.8)
[2024-09-21 16:35] LABS: INR 0.99 (0.9-1.15); Partial Thromboplastin Time 26.2 SEC (24.5-34.5); Prothrombin Time 10.5 sec (9.3-11.8)
[2024-09-21 16:39] LABS: Anion Gap 9 (5-15); Carbon Dioxide 29 mmol/L (20-31); Chloride 102 mmol/L (98-107); Potassium 3.9 mmol/L (3.5-5.1); Sodium 140 mmol/L (136-145)
[2024-09-21 16:45] LABS: BUN/Creatinine Ratio 16.7 (10.0-20.0); Blood Urea Nitrogen 18 mg/dL (9-23)
[2024-09-21 17:01] LABS: Calcium 10.5 mg/dL (8.7-10.4); Glucose 163 mg/dL (74-106)
[2024-09-24] VITALS (63 sets, daily range): BP systolic 51–146; BP diastolic 29–91; PULSE 51–110; RESP 9–25; TEMP 97.4–98.6; O2SAT 89–100
[~2024-09-24] VITALS: Ht 160 cm; Wt 68.0 kg
[~2024-09-24 07:28] MED LIST changes: -ATOR-507 PO; -GABA250S7 PO
[2024-09-24] MEDS: IOHEXOL 350 MG/ML 100ML IJ ONE ×2 (08:52→09:43)
[2024-09-24] MEDS: GLYCOPYRROLATE 0.2 MG/ML 1ML VIAL ONE ×2 (09:03→09:48)
[2024-09-24] MEDS: ANGIOMAX 250 MG VIAL IV ONE (09:03)
[2024-09-24] MEDS: EPINEPHrine HCL 1 MG/10 ML SYRG ONE (09:03)
[2024-09-24] MEDS: LIDOCAINE 2%HCL (LOCAL ANESTH.) INJ 20ML MDV ONE (09:03)
[2024-09-24] MEDS: ATROPINE SULF 1 MG/10ml SYR ONE (09:03)
[2024-09-24] MEDS: SODIUM CHL 0.9% 50 ML ONE (09:04)
[2024-09-24] MEDS: DOPamine 1600MCG/ML D5W 250 ML IV SCH (10:21)
[2024-09-24] MEDS: DOPamine 1600MCG/ML D5W 250 ML IV ONE (10:22)
[2024-09-24] MEDS: CLOPIDOGREL BISULFATE 75 MG TAB ONE (10:23)
[2024-09-24] MEDS ORDERED: NITROGLYCERIN 0.4 MG SL TAB SL PRN (11:30)
[2024-09-24] MEDS ORDERED: MORPHINE SULFATE INJ 2 MG/ml SYRG IV PRN (11:30)
[2024-09-24] MEDS ORDERED: DEXTROSE (50%) 50ML SYRG IV PRN (11:45)
--- NOTE | 2024-09-24 12:02 | DVHHP ---
ADMIT DATE: 09/24/2024 HISTORY OF PRESENT ILLNESS: The patient who is a 74 years old with history of hypertension, hyperlipidemia, now with TIA symptoms. Doppler showed the patient to have high-grade narrowing of the left internal carotid artery by Doppler study and with TIA-like symptoms also persistent. Because of above presentation, it was felt that the patient should undergo carotid angiography. PERTINENT MEDICAL HISTORY: Significant for: * Hypertension. * Hyperlipidemia. * History of diabetes with diabetic neuropathy, vasculopathy, nephropathy. * History of coronary artery disease. She had angioplasty with stent placement, left anterior descending artery in 2022 recently and at that time, it was noted that the patient had a high-grade narrowing of the left internal carotid artery. * Peripheral vascular disease. * History of renal insufficiency. * History of congestive heart failure. CURRENT MEDICATIONS: Include metformin, aspirin, metoprolol, Lipitor, hydrochlorothiazide, Brilinta, Entresto, Lantus insulin 30 units every day. REVIEW OF SYSTEMS: She denies any fever or chills. No melena, hematochezia. No bleeding diathesis. No hematemesis, hemoptysis. PHYSICAL EXAMINATION: VITAL SIGNS: Blood pressure is 124/80, pulse of 70, O2 saturation 94% on room air. HEENT: Pupils are reactive. Funduscopic exam is benign. No AV nicking. No exudates. No papilledema noted. Sclerae are anicteric. Extraocular muscles are intact. Tympanic membranes are negative. Nasal passages are intact. No sinus tenderness. Oral mucosa moist. Posterior pharynx without any exudates. Carotid pulses are 2+ symmetrical. NECK: No cervical adenopathy, no supraclavicular adenopathy. PULMONARY: Clear to auscultation. Tympanic to percussion. No rhonchi, no wheezes. CARDIOVASCULAR: Regular rate without S3, without S4. PMI is slightly diffuse. Laterally and inferiorly displaced. Distant heart sounds, however, because of obesity. ABDOMEN: Obese. Unable to appreciate an organomegaly. Stool guaiac is negative. NEUROLOGIC: The patient at this time is intact. No focality to the examination. Had neurological deficits in the past, has completely resolved. EXTREMITIES: 1+ pulses. Doppler on the left side, however. ASSESSMENT AND PLAN: The patient does have TIA symptoms and high-grade narrowing of the left internal carotid artery. The patient is scheduled to undergo carotid angiography. Further recommendations after the angiogram. Jaime Rivera MD SA/PAM/MARIANNA TID: [id number] RECEIPT: [id number]
--- NOTE | 2024-09-24 12:10 | DVHOP ---
DATE OF SURGERY: 09/24/2024 PROCEDURES PERFORMED: * Selective left and right carotid and cerebral angiography. * Angioplasty with stent placement of the left internal carotid artery with a 9 x 7 x 30 mm Xact stent. * Distal embolic protection device deployment. * Conscious sedation. DESCRIPTION OF PROCEDURE: The patient was prepped and draped in a sterile condition. 1% Xylocaine used to anesthetize the right groin. Using a Cook needle, the right femoral artery was engaged with Seldinger technique, a 6-[place] sheath in the right femoral artery. Using a 6-[place] JR4 diagnostic catheter, selective left and right carotid and cerebral angiographies were performed. Following that, the 6-[place] diagnostic system was exchanged for an 8-[place] interventional system. The 6-[place] sheath was exchanged for an 8-[place] sheath. Using 6-[place] JR4 diagnostic catheter, we were able to exchange the 6-[place] JR4 diagnostic catheter through a Supercore wire to an 8-[place] multipurpose guide catheter, implanted in the distal left common carotid. Following that, the Emboshield protection device was then deployed through the left internal carotid artery into the distal aspect of the petrous segment of the internal iliac artery. The ostial left internal carotid artery was then balloon angioplastied using a 4 mm x 30 mm Viatrac balloon. This was then followed by deployment of a 9 x 7 x 30 mm self-expanding Xact stent across the lesion. It was then postdilated using a 5 mm x 20 mm Viatrac balloon. There were no complications. The patient tolerated the procedure. Neurological evaluation remained intact throughout the procedure. During the course of the procedure, the patient received 2 doses of anticholinergic medications followed by atropine that was also given. The patient briefly had a start of dopamine to maintain the blood pressure and the heart rate. There were no complications. The patient tolerated the procedure well. RESULTS: * Left and right common carotid without any flow restrictive lesion. * Left and right external carotid artery without any flow restrictive lesion, right internal carotid artery had a mild intimal irregularity with about a 30% narrowing. Otherwise, no flow restrictive lesion in the proximal segment of the right internal carotid artery and left internal carotid artery an 80% ulcerating plaque, status post angioplasty with self-expanding stent placement, a 9 x 7 x 30 mm stent with less than 10% residual stenosis. * Right femoral arteriotomy site was closed using the 8-[place] Angio-Seal. There were no complications. The patient tolerated the procedure well. * Following the deployment of the stent, there was less than 10% residual stenosis of the left internal carotid artery. * Left and right cerebral angiography failed to demonstrate any deficit at this time. Jaime Rivera MD SA/ZOHREH/LITA TID: [id number] RECEIPT: [id number]
[2024-09-24] MEDS: ACCU-CHEK COMFORT CURVE STRIP VI SCH (17:36)
[2024-09-24] MEDS: InsuLIN REG 1unit/0.01ml Soln (100units/ml) SC SCH ×2 (17:36→22:14)
[2024-09-24] MEDS: HYDROcodone-ACET 10/325MG TAB PO PRN (18:39)
[2024-09-24] MEDS: TICAGRELOR 90 MG TAB PO SCH (22:07)
[2024-09-24] MEDS: LATANOPROST 0.005 % OPTH(EYE) SOL 2.5ML OP SCH (22:08)
[2024-09-25] VITALS (90 sets, daily range): BP systolic 88–162; BP diastolic 29–110; PULSE 43–78; RESP 8–24; TEMP 97.6–98.6; O2SAT 89–99
--- NOTE | 2024-09-25 03:38 | DVHDS ---
DATE OF DISCHARGE: 09/24/2024 HOSPITAL COURSE: The patient underwent successful angioplasty with stent placement of the left internal carotid artery. There were no residual neurological symptoms. No deficits noted, pre and post intervention. Blood pressure is under excellent control at this time, may be discharged home on dual antiplatelet therapy. Follow up with me in one week. Stable at the time of discharge. ACTIVITY: As instructed. DIET: Will be 2 gram sodium diet. Jaime Rivera MD SA/REY/GEETHA TID: [id number] RECEIPT: [id number]
[2024-09-25] MEDS: INSULIN LANTUS (GLARGINE) 1 /0.01ml (100units/ml) SC SCH (06:38)
[2024-09-25] MEDS: hydroCHLOROthiazide 25 MG TAB PO SCH (10:00)
[2024-09-25] MEDS ORDERED: CLOPIDOGREL BISULFATE 75 MG TAB PO SCH (10:00)
[2024-09-25] MEDS: METOPROLOL TARTRATE 25 MG TAB PO SCH (10:00)
[2024-09-25] MEDS: CYANOCOBALAMIN 500 MCG TAB PO SCH (10:22)
[2024-09-25] MEDS: ASPirin 325 MG TAB PO SCH (10:22)
--- NOTE | 2024-09-25 13:08 | DVHPN2 ---
Progress Note - Dictate Date Seen: Sep 25, 2024 Medical Necessity Reason Pt with a Central, PICC or Fol: No Subjective HISTORY OF PRESENT ILLNESS: The patient who is a 74 years old with history of hypertension, hyperlipidemia, now with TIA symptoms. Doppler showed the patient to have high-grade narrowing of the left internal carotid artery by Doppler study and with TIA-like symptoms also persistent. Because of above presentation, it was felt that the patient should undergo carotid angiography. PERTINENT MEDICAL HISTORY: Significant for: * Hypertension. * Hyperlipidemia. * History of diabetes with diabetic neuropathy, vasculopathy, nephropathy. * History of coronary artery disease. She had angioplasty with stent placement, left anterior descending artery in 2022 recently and at that time, it was noted that the patient had a high-grade narrowing of the left internal carotid artery. * Peripheral vascular disease. * History of renal insufficiency. * History of congestive heart failure. CURRENT MEDICATIONS: Include metformin, aspirin, metoprolol, Lipitor, hydrochlorothiazide, Brilinta, Entresto, Lantus insulin 30 units every day. REVIEW OF SYSTEMS: She denies any fever or chills. No melena, hematochezia. No bleeding diathesis. No hematemesis, hemoptysis. * Selective left and right carotid and cerebral angiography. * Angioplasty with stent placement of the left internal carotid artery with a 9 x 7 x 30 mm Xact stent. * Distal embolic protection device deployment. * Conscious sedation. * Left and right common carotid without any flow restrictive lesion. * Left and right external carotid artery without any flow restrictive lesion, right internal carotid artery had a mild intimal irregularity with about a 30% narrowing. Otherwise, no flow restrictive lesion in the proximal segment of the right internal carotid artery and left internal carotid artery an 80% ulcerating plaque, status post angioplasty with self-expanding stent placement, a 9 x 7 x 30 mm stent with less than 10% residual stenosis. * Right femoral arteriotomy site was closed using the 8-English Angio-Seal. There were no complications. The patient tolerated the procedure well. * Following the deployment of the stent, there was less than 10% residual stenosis of the left internal carotid artery. * Left and right cerebral angiography failed to demonstrate any deficit at this time. vital signs Vital Sign Date Time Temp Pulse Resp B/P (MAP) Pulse Ox O2 Delivery O2 Flow Rate FiO2 09/25/24 10:00 48 112/38 09/25/24 09:00 13 97 09/25/24 08:00 98.6 98.6 09/25/24 08:00 Room Air* 0 21 Total Intake and Output 09/24/24 09/24/24 09/25/24 15:00 23:00 07:00 Intake Total 82.46 ml 660.724 ml 575.256 ml Output Total 0 ml 0 ml Balance 82.46 ml 660.724 ml 575.256 ml medications Current Medications Medications Dose Ordered Sig/Jeannine Route Start Time Stop Time Status Last Admin Dose Admin Nitroglycerin 0.4 mg Q5MINP PRN SL 09/24/24 11:30 Morphine Sulfate 2 mg Q30M PRN IV 09/24/24 11:30 Hydrochlorothiazide 25 mg DAILY PO 09/25/24 10:00 Insulin Glargine 30 units QAM SC 09/25/24 07:00 09/25/24 06:38 30 UNITS Latanoprost 1 drop HS OP 09/24/24 22:00 09/24/24 22:08 1 DROP Metoprolol Tartrate 25 mg DAILY PO 09/25/24 10:00 Ticagrelor 90 mg BID PO 09/24/24 22:00 09/25/24 10:23 90 MG Aspirin 325 mg DAILY PO 09/25/24 10:00 09/25/24 10:22 325 MG Cyanocobalamin 1,000 mcg DAILY PO 09/25/24 10:00 09/25/24 10:22 1,000 MCG Patient Own Medication 1 tab BID PO 09/24/24 22:00 Acetaminophen/ Hydrocodone Bitart 1 tab Q8HP PRN PO 09/24/24 11:30 09/24/24 18:39 1 TAB Diagnostic Test (Pha) 1 strip ACHS 09/24/24 17:00 09/25/24 12:14 1 STRIP Insulin Human Regular HS SC 09/24/24 22:00 09/24/24 22:14 4 UNITS Insulin Human Regular AC SC 09/24/24 17:00 09/25/24 12:14 6 UNITS Dextrose 50 ml UD PRN IV 09/24/24 11:45 Dopamine HCl/ Dextrose 250 ml @ 14.884 mls/ hr [id number] IV 09/24/24 10:35 09/25/24 02:21 23.814 MLS/HR Fludrocortisone Acetate 0.1 mg BID PO 09/25/24 10:30 objective PHYSICAL EXAMINATION: VITAL SIGNS: Blood pressure is 124/80, pulse of 70, O2 saturation 94% on room air. HEENT: Pupils are reactive. Funduscopic exam is benign. No AV nicking. No exudates. No papilledema noted. Sclerae are anicteric. Extraocular muscles are intact. Tympanic membranes are negative. Nasal passages are intact. No sinus tenderness. Oral mucosa moist. Posterior pharynx without any exudates. Carotid pulses are 2+ symmetrical. NECK: No cervical adenopathy, no supraclavicular adenopathy. PULMONARY: Clear to auscultation. Tympanic to percussion. No rhonchi, no wheezes. CARDIOVASCULAR: Regular rate without S3, without S4. PMI is slightly diffuse. Laterally and inferiorly displaced. Distant heart sounds, however, because of obesity. ABDOMEN: Obese. Unable to appreciate an organomegaly. Stool guaiac is negative. NEUROLOGIC: The patient at this time is intact. No focality to the examination. Had neurological deficits in the past, has completely resolved. EXTREMITIES: 1+ pulses. Doppler on the left side, however. laboratory and microbiology Laboratory Tests 09/21/24 16:06 Test 09/21/24 16:06 Range/Units Serum Glucose 163 H 74-106 mg/dL Problem List Selective left and right carotid and cerebral angiography. * Angioplasty with stent placement of the left internal carotid artery with a 9 x 7 x 30 mm Xact stent. * Distal embolic protection device deployment. Assessment/Plan PT WITH HYPOTENSION BRADYCARDIA FOLLOWING TO CAROTID STENT PLACEMENT CONORINEYohana DOPAMINE Plan discussed with: Patient Critical Care Time(min): 35 JAE BARKLEY MD Sep 25, 2024 13:08
[2024-09-25] MEDS: FLUDROCORTISONE ACETATE 0.1 MG TAB PO SCH (13:17)
[2024-09-26] VITALS (68 sets, daily range): BP systolic 86–165; BP diastolic 37–90; PULSE 50–117; RESP 8–23; TEMP 97.3–98.7; O2SAT 91–98
[2024-09-26] MEDS ORDERED: FLUDROCORTISONE ACETATE 0.1 MG TAB PO SCH (10:00)
[2024-09-27] VITALS (86 sets, daily range): BP systolic 93–182; BP diastolic 30–90; PULSE 46–82; RESP 8–21; TEMP 97.7–98.9; O2SAT 94–99
[2024-09-27 10:01] LABS: Basophils # (auto) 0.1 10 ^3/uL (0-0.2); Basophils % (auto) 0.9 % (0.0-2.0); Eosinophils # (auto) 0.3 10 ^3/uL (0-0.8); Eosinophils % (auto) 4.3 % (0.0-7.0); Hematocrit 42.5 % (36.0-46.0); Hemoglobin 13.8 g/dL (12.2-16.2); Lymphocytes # (auto) 1.1 10 ^3/uL (0.4-5.4); Lymphocytes % (auto) 15.1 % (10.0-50.0); Mean Corpuscular Hemoglobin 28.5 pg (28.0-32.0); Mean Corpuscular Hgb Conc. 32.5 g/dL (32.0-36.0); Mean Corpuscular Volume 87.6 fL (80.0-100.0); Monocytes # (auto) 0.5 10 ^3/uL (0-1.3); Monocytes % (auto) 6.3 % (0.0-12.0); Neutrophils # (auto) 5.6 10 ^3/uL (1.6-8.6); Neutrophils % (auto) 73.4 % (37.0-80.0); Platelet Count (auto) 232 10^3/uL (140-450); Red Blood Cells 4.85 10^6/uL (4.0-5.20); Red Cell Distribution Width 14.3 % (11.8-14.3); White Blood Cell 7.6 10^3/uL (4.4-10.8)
[2024-09-27 10:40] LABS: Alanine Aminotransferase 10 U/L (7-40); Albumin 4.1 g/dL (3.2-4.8); Alkaline Phosphatase 78 U/L (46-116); Anion Gap 10 (5-15); BUN/Creatinine Ratio 16.2 (10.0-20.0); Blood Urea Nitrogen 16 mg/dL (9-23); Calcium 9.7 mg/dL (8.7-10.4); Carbon Dioxide 25 mmol/L (20-31); Chloride 105 mmol/L (98-107); Magnesium 1.9 mg/dL (1.6-2.6); Potassium 4.1 mmol/L (3.5-5.1); Sodium 140 mmol/L (136-145); Total Protein 6.8 g/dL (5.7-8.2)
[2024-09-27 10:41] LABS: Bilirubin, Total 0.7 mg/dL (0.2-1.0)
[2024-09-27 11:07] LABS: Aspartate Aminotransferase 11 U/L (13-40); Glucose 249 mg/dL (74-106)
[2024-09-28] VITALS (77 sets, daily range): BP systolic 68–159; BP diastolic 36–116; PULSE 47–93; RESP 8–22; TEMP 96.7–98.8; O2SAT 93–99
--- NOTE | 2024-09-28 13:22 | DVHPN2 ---
Progress Note - Dictate Date Seen: Sep 26, 2024 Medical Necessity Reason Pt with a Central, PICC or Fol: No Subjective HISTORY OF PRESENT ILLNESS: The patient who is a 74 years old with history of hypertension, hyperlipidemia, now with TIA symptoms. Doppler showed the patient to have high-grade narrowing of the left internal carotid artery by Doppler study and with TIA-like symptoms also persistent. Because of above presentation, it was felt that the patient should undergo carotid angiography. PERTINENT MEDICAL HISTORY: Significant for: * Hypertension. * Hyperlipidemia. * History of diabetes with diabetic neuropathy, vasculopathy, nephropathy. * History of coronary artery disease. She had angioplasty with stent placement, left anterior descending artery in 2022 recently and at that time, it was noted that the patient had a high-grade narrowing of the left internal carotid artery. * Peripheral vascular disease. * History of renal insufficiency. * History of congestive heart failure. CURRENT MEDICATIONS: Include metformin, aspirin, metoprolol, Lipitor, hydrochlorothiazide, Brilinta, Entresto, Lantus insulin 30 units every day. REVIEW OF SYSTEMS: She denies any fever or chills. No melena, hematochezia. No bleeding diathesis. No hematemesis, hemoptysis. * Selective left and right carotid and cerebral angiography. * Angioplasty with stent placement of the left internal carotid artery with a 9 x 7 x 30 mm Xact stent. * Distal embolic protection device deployment. * Conscious sedation. * Left and right common carotid without any flow restrictive lesion. * Left and right external carotid artery without any flow restrictive lesion, right internal carotid artery had a mild intimal irregularity with about a 30% narrowing. Otherwise, no flow restrictive lesion in the proximal segment of the right internal carotid artery and left internal carotid artery an 80% ulcerating plaque, status post angioplasty with self-expanding stent placement, a 9 x 7 x 30 mm stent with less than 10% residual stenosis. * Right femoral arteriotomy site was closed using the 8-Japanese Angio-Seal. There were no complications. The patient tolerated the procedure well. * Following the deployment of the stent, there was less than 10% residual stenosis of the left internal carotid artery. * Left and right cerebral angiography failed to demonstrate any deficit at this time. vital signs Vital Sign Date Time Temp Pulse Resp B/P (MAP) Pulse Ox O2 Delivery O2 Flow Rate FiO2 09/28/24 11:30 52 17 138/46 (76) 98 09/28/24 10:15 Room Air* 0 21 09/28/24 08:00 96.9 96.9 Total Intake and Output 09/27/24 09/27/24 09/28/24 15:00 23:00 07:00 Intake Total 119.032 ml 1119.072 ml 690.978 ml Balance 119.032 ml 1119.072 ml 690.978 ml medications Current Medications Medications Dose Ordered Sig/Jeannine Route Start Time Stop Time Status Last Admin Dose Admin Nitroglycerin 0.4 mg Q5MINP PRN SL 09/24/24 11:30 Morphine Sulfate 2 mg Q30M PRN IV 09/24/24 11:30 Hydrochlorothiazide 25 mg DAILY PO 09/25/24 10:00 Insulin Glargine 30 units QAM SC 09/25/24 07:00 09/28/24 06:17 30 UNITS Latanoprost 1 drop HS OP 09/24/24 22:00 09/27/24 22:25 1 DROP Metoprolol Tartrate 25 mg DAILY PO 09/25/24 10:00 Ticagrelor 90 mg BID PO 09/24/24 22:00 09/28/24 10:01 90 MG Aspirin 325 mg DAILY PO 09/25/24 10:00 09/28/24 09:55 325 MG Cyanocobalamin 1,000 mcg DAILY PO 09/25/24 10:00 09/28/24 09:59 1,000 MCG Patient Own Medication 1 tab BID PO 09/24/24 22:00 Acetaminophen/ Hydrocodone Bitart 1 tab Q8HP PRN PO 09/24/24 11:30 09/24/24 18:39 1 TAB Diagnostic Test (Pha) 1 strip ACHS 09/24/24 17:00 09/28/24 11:57 1 STRIP Insulin Human Regular HS SC 09/24/24 22:00 09/27/24 22:22 3 UNITS Insulin Human Regular AC SC 09/24/24 17:00 09/28/24 11:59 6 UNITS Dextrose 50 ml UD PRN IV 09/24/24 11:45 Dopamine HCl/ Dextrose 250 ml @ 14.884 mls/ hr [id number] IV 09/24/24 10:35 09/28/24 10:55 14.884 MLS/HR Fludrocortisone Acetate 0.1 mg BID PO 09/25/24 10:30 09/28/24 10:01 0.1 MG objective PHYSICAL EXAMINATION: VITAL SIGNS: Blood pressure is 124/80, pulse of 70, O2 saturation 94% on room air. HEENT: Pupils are reactive. Funduscopic exam is benign. No AV nicking. No exudates. No papilledema noted. Sclerae are anicteric. Extraocular muscles are intact. Tympanic membranes are negative. Nasal passages are intact. No sinus tenderness. Oral mucosa moist. Posterior pharynx without any exudates. Carotid pulses are 2+ symmetrical. NECK: No cervical adenopathy, no supraclavicular adenopathy. PULMONARY: Clear to auscultation. Tympanic to percussion. No rhonchi, no wheezes. CARDIOVASCULAR: Regular rate without S3, without S4. PMI is slightly diffuse. Laterally and inferiorly displaced. Distant heart sounds, however, because of obesity. ABDOMEN: Obese. Unable to appreciate an organomegaly. Stool guaiac is negative. NEUROLOGIC: The patient at this time is intact. No focality to the examination. Had neurological deficits in the past, has completely resolved. EXTREMITIES: 1+ pulses. Doppler on the left side, however. laboratory and microbiology Laboratory Tests 09/27/24 09:52 Test 09/27/24 09:52 Range/Units Serum Glucose 249 H 74-106 mg/dL Problem List Selective left and right carotid and cerebral angiography. * Angioplasty with stent placement of the left internal carotid artery with a 9 x 7 x 30 mm Xact stent. * Distal embolic protection device deployment. Assessment/Plan PT WITH HYPOTENSION BRADYCARDIA FOLLOWING TO CAROTID STENT PLACEMENT FLORINEF DOPAMINE AMBULATE TITRATE OFF DOPAMINE Dietary Evaluation Review Recommendations by RD: Dietary education by RD Comments: 1) Add cardiac restriction to 60g CCHO diet order 2) Collect HbA1c 3) Refer to outpatient RD/[facility] for weight management 4) Continue plan of care Expected Outcomes/Goals: 1) appetite and labs to improve 2) f/u in 5 days Plan discussed with: Patient Critical Care Time(min): 35 JAE BARKLEY MD Sep 28, 2024 13:22
[2024-09-28] MEDS: DOPamine 1600MCG/ML D5W 250 ML IV SCH (13:30)
[2024-09-29] VITALS (20 sets, daily range): BP systolic 96–136; BP diastolic 39–98; PULSE 51–66; RESP 10–22; TEMP 96.9–98.6; O2SAT 96–100
== END 2024-09-29 15:59 | disposition home or self-care (01) | DRG 36 ==
LOC: CATH 07:28 → OVERFLOW 11:20 → ICU CENTRL 16:43
PROVIDERS: ADMIT Internal Medicine Cardiovascular Disease; ATTEND Internal Medicine Cardiovascular Disease
PROC: 037L3DZ Dilation of Left Internal Carotid Artery with Intraluminal Device, Percutaneous Approach (ICD-10-PCS; principal; 2024-09-24)
PROC: B3171ZZ Fluoroscopy of Left Internal Carotid Artery using Low Osmolar Contrast (ICD-10-PCS; 2024-09-24)
DX: I65.22 Occlusion and stenosis of left carotid artery (principal); I95.9 Hypotension, unspecified; R00.1 Bradycardia, unspecified; E11.40 Type 2 diabetes mellitus with diabetic neuropathy, unspecified; I11.0 Hypertensive heart disease with heart failure; E78.5 Hyperlipidemia, unspecified; E11.51 Type 2 diabetes mellitus with diabetic peripheral angiopathy without gangrene; I25.10 Atherosclerotic heart disease of native coronary artery without angina pectoris; I50.9 Heart failure, unspecified; Z79.4 Long term (current) use of insulin; Z79.82 Long term (current) use of aspirin; Z79.899 Other long term (current) drug therapy
CPT/HCPCS: 36224; 36415; 37215; 80048; 80053; 82962; 83735; 85025; 85610; 85730; 87081; 97110; 97116; 97163; 99152; G0378; J1815

== ENCOUNTER → 2024-12-18 | Outpatient (CLI) | payer OTHER ==
[~2024-12-18] MED LIST changes: -METO25TA5 PO; -SACU1TAB7 PO
[2024-12-18 18:35] LABS: Creatinine, Urine 123.73 mg/dL (30.0-125.0)
== END | disposition home or self-care (01) ==
LOC: LAB 16:00
PROVIDERS: ATTEND Student in an Organized Health Care Education/Training Program
DX: I11.0 Hypertensive heart disease with heart failure (principal); I50.9 Heart failure, unspecified; E11.9 Type 2 diabetes mellitus without complications; R79.89 Other specified abnormal findings of blood chemistry
CPT/HCPCS: 36415; 82043; 82570

== ENCOUNTER 2025-03-15 09:54 | Outpatient (CLI) | payer OTHER ==
[2025-03-15] MEDS: REGADENOSON 0.4 MG/5 ML SYRG IV ONE ×2 (12:00→12:10)
--- NOTE | 2025-03-16 10:50 | DVHSR ---
APPROVED REPORT Exam: Nuclear Stress Test Indication: CAD Stress Tech: Chiqui Antonio Ht: 5 ft 3 in Wt: 177 lbs BSA: 1.84 m2 HR: 75 bpm BP: 137/85 mmHg BMI: 31.35 Rhythm: NSR Medical History Medical History: Bilateral Carotid Artery Stenosis with left stent, CAD, HTN, DM, NSTEMI, CHF, HLD Allergies: No known drug allergies Stress Test Details Stress Test: Pharmacologic stress testing performed using 0.4 mg of regadenoson per 5 mL given IV ov er 10 seconds. Reason for pharmacologic stress test: CAD. HR Resting HR: 75 bpmMax Heart Rate (APMHR): 145.674177 bpm Max HR Achieved: 94 bpmTarget HR (85% APMHR): 123.774878 bpm % of APMHR: 64.83 Recovery HR: 86 bpm BP Resting BP: 137/85 mmHg Recovery BP: 130/62 mmHg ECG Resting ECG: NSR Clinical Reason for Termination: Completed protocol Stress ECG Conclusion lteral wall completely infarcted anterior wall has mild reversible ischemia lvef 33% severe chf NM EXAM: Myocardial Perfusion REST/STRESS Imaging Protocol: Rest Tc-99m/Stress Tc-99m 1 day Resting Data Rest SPECT myocardial perfusion imaging was performed in supine position 60 minutes following the int ravenous injection of 10.0 mCi of Tc-99m Sestamibi. Time of rest injection: 10:36 Date: 03/15/2025 Time of rest imagin:36 Date: 03/15/2025 Administration Route: IV Administration Site: Left Arm Pharmacologic Stress Pharmacologic stress test was performed by injecting Regadenoson 0.4 mg IV push followed by the intra venous injection of 33.0 mCi of Tc-99m Sestamibi. Time of stress injection: 12:01 Date: 03/15/2025 Time of stress imagin:01 Date: 03/15/2025 Administration Route: IV Administration Site: Left Arm Gated Stress SPECT was performed 60 minutes after stress injection. The images were gated to evaluate regional wall motion and calculate left ventricular ejection fracti on. Stress only was performed in the Supine position. Nuclear Conclusion lteral wall completely infarcted anterior wall has mild reversible ischemia lvef 33% severe chf
== END 2025-03-15 17:00 | disposition home or self-care (01) ==
LOC: XYW 09:54
PROVIDERS: ATTEND Internal Medicine
DX: I25.9 Chronic ischemic heart disease, unspecified (principal); I25.10 Atherosclerotic heart disease of native coronary artery without angina pectoris; I11.0 Hypertensive heart disease with heart failure; I50.9 Heart failure, unspecified; I25.2 Old myocardial infarction; E78.5 Hyperlipidemia, unspecified; E11.9 Type 2 diabetes mellitus without complications
CPT/HCPCS: 78452; 93017; A9500; J2785

== ENCOUNTER 2025-03-25 09:43 | Outpatient (CLI) | payer OTHER ==
[2025-03-25 10:33] LABS: Hematocrit 38.8 % (36.0-46.0); Hemoglobin 13.2 g/dL (12.2-16.2); Mean Corpuscular Hemoglobin 29.2 pg (28.0-32.0); Mean Corpuscular Volume 86.1 fL (80.0-100.0); Nucleated Red Blood Cells % 0.0 %
[2025-03-25 10:57] LABS: Alanine Aminotransferase 15 U/L (7-40); Albumin 4.4 g/dL (3.2-4.8); Alkaline Phosphatase 93 U/L (46-116); Anion Gap 9 (5-15); BUN/Creatinine Ratio 11.4 (10.0-20.0); Blood Urea Nitrogen 10 mg/dL (9-23); Calcium 9.6 mg/dL (8.7-10.4); Carbon Dioxide 27 mmol/L (20-31); Chloride 107 mmol/L (98-107); Cholesterol 185 mg/dL (< 200); Glucose 140 mg/dL (74-106); HDL Cholesterol 62 mg/dL (40-59); Potassium 4.4 mmol/L (3.5-5.1); Sodium 143 mmol/L (136-145); Total Protein 7.1 g/dL (5.7-8.2); Triglycerides 104 mg/dL (< 150)
[2025-03-25 10:58] LABS: Bilirubin, Total 0.4 mg/dL (0.2-1.0)
== END 2025-03-25 17:00 | disposition home or self-care (01) ==
LOC: LAB 09:43
PROVIDERS: ATTEND Student in an Organized Health Care Education/Training Program
DX: I11.0 Hypertensive heart disease with heart failure (principal); I50.9 Heart failure, unspecified; E11.9 Type 2 diabetes mellitus without complications; E78.5 Hyperlipidemia, unspecified; D51.0 Vitamin B12 deficiency anemia due to intrinsic factor deficiency; E55.9 Vitamin D deficiency, unspecified
CPT/HCPCS: 36415; 80053; 80061; 82306; 82607; 83036; 84443; 85025